=== PATIENT | male | born 1960 | race Caucasian/White ===

== ENCOUNTER → 2017-02-06 | Outpatient (CLI) | payer OTHER ==
[~2017-02-06] MED LIST: MIRALAX POWDER17 G1 PO; XARELTO15 M1 PO
[2017-02-06 14:42] LABS: BASO # 0.1 10*3/uL (0.0-0.1); BASO % 0.6 % (0.0-1.0); EOS # 0.4 10*3/uL (0.0-0.4); EOS % 4.1 % (1.0-4.0); LYMPH # 1.1 10*3/uL (1.3-4.4); LYMPH % 10.8 % (27.0-41.0); MEAN CELL VOLUME 88.1 fl (80.0-94.0); MEAN CORPUSCULAR HGB 29.4 pg (27.0-31.0); MEAN CORPUSCULAR HGB CONC 33.3 g/dl (33.0-37.0); MEAN PLATELET VOLUME 9.2 fl (9.6-12.3); MONO # 0.9 10*3/uL (0.1-1.0); MONO % 8.9 % (3.0-9.0); NEUT # 7.4 10*3/uL (2.3-7.9); NEUT % 75.3 % (47.0-73.0); PLATELET COUNT AUTOMATED 249 10*3/uL (130-400); RED BLOOD COUNT 4.77 10*6/uL (4.50-5.90); WHITE BLOOD COUNT 9.8 10*3/uL (4.8-10.8)
[2017-02-06 15:12] LABS: ALBUMIN 3.2 gm/dl (3.1-4.5); ALKALINE PHOSPHATASE 73 U/L (45-117); BILIRUBIN, TOTAL 0.2 mg/dl (0.2-1.0); BUN 20 mg/dl (7-24); CARBON DIOXIDE 28 mmol/L (21-32); CHLORIDE 105 mmol/L (98-107); EST GLOM FILT AFRICAN AMERICAN > 60 ml/min; GLUCOSE 187 mg/dL (65-99); LDH 210 U/L (87-241); POTASSIUM 4.1 mmol/L (3.5-5.1); SGOT/AST 18 IU/L (3-35); SGPT/ALT 27 U/L (12-78); SODIUM 141 mmol/L (136-145); TOTAL PROTEIN 8.7 gm/dL (6.4-8.2)
== END | disposition home or self-care (01) ==
LOC: LAB 14:28
PROVIDERS: Internal Medicine Hematology & Oncology
DX: Z51.11 Encounter for antineoplastic chemotherapy (principal); C15.3 Malignant neoplasm of upper third of esophagus; C15.5 Malignant neoplasm of lower third of esophagus; I82.409 Acute embolism and thrombosis of unspecified deep veins of unspecified lower extremity; I31.3 Pericardial effusion (noninflammatory); R11.2 Nausea with vomiting, unspecified

== ENCOUNTER → 2017-06-27 | Outpatient (CLI) | payer OTHER ==
[2017-06-27 14:13] LABS: BASO # 0.1 10*3/uL (0.0-0.1); BASO % 0.7 % (0.0-1.0); EOS # 0.4 10*3/uL (0.0-0.4); EOS % 4.6 % (1.0-4.0); HEMATOCRIT 41.9 % (42.0-52.0); LYMPH # 1.3 10*3/uL (1.3-4.4); LYMPH % 13.3 % (27.0-41.0); MEAN CELL VOLUME 87.3 fl (80.0-94.0); MEAN CORPUSCULAR HGB 29.2 pg (27.0-31.0); MEAN CORPUSCULAR HGB CONC 33.4 g/dl (33.0-37.0); MONO # 0.8 10*3/uL (0.1-1.0); MONO % 8.3 % (3.0-9.0); NEUT # 6.8 10*3/uL (2.3-7.9); NEUT % 72.4 % (47.0-73.0); PLATELET COUNT AUTOMATED 247 10*3/uL (130-400); RED CELL DISTRI WIDTH 13.1 % (0-14.5); WHITE BLOOD COUNT 9.4 10*3/uL (4.8-10.8)
[2017-06-27 14:34] LABS: ALBUMIN 3.2 gm/dl (3.1-4.5); ALKALINE PHOSPHATASE 74 U/L (45-117); BUN 16 mg/dl (7-24); CHLORIDE 104 mmol/L (98-107); CREATININE 1.21 mg/dL (0.70-1.30); LDH 173 U/L (87-241); POTASSIUM 4.1 mmol/L (3.5-5.1); SGOT/AST 19 IU/L (3-35); SGPT/ALT 38 U/L (12-78); SODIUM 137 mmol/L (136-145); TOTAL PROTEIN 8.5 gm/dL (6.4-8.2)
== END | disposition home or self-care (01) ==
LOC: LAB 13:33
PROVIDERS: Internal Medicine Hematology & Oncology
DX: Z51.11 Encounter for antineoplastic chemotherapy (principal); I31.3 Pericardial effusion (noninflammatory); I50.9 Heart failure, unspecified; I82.409 Acute embolism and thrombosis of unspecified deep veins of unspecified lower extremity; C15.5 Malignant neoplasm of lower third of esophagus; C15.3 Malignant neoplasm of upper third of esophagus; R11.2 Nausea with vomiting, unspecified

== ENCOUNTER → 2018-01-02 | Outpatient (CLI) | payer OTHER ==
[2018-01-02 09:16] LABS: BASO # 0.1 10*3/uL (0.0-0.1); BASO % 0.7 % (0.0-1.0); EOS # 0.3 10*3/uL (0.0-0.4); EOS % 3.1 % (1.0-4.0); HEMATOCRIT 44.2 % (42.0-52.0); LYMPH # 1.1 10*3/uL (1.3-4.4); LYMPH % 12.5 % (27.0-41.0); MEAN CELL VOLUME 87.7 fl (80.0-94.0); MEAN CORPUSCULAR HGB 29.8 pg (27.0-31.0); MEAN CORPUSCULAR HGB CONC 33.9 g/dl (33.0-37.0); MEAN PLATELET VOLUME 9.9 fl (9.6-12.3); MONO # 0.8 10*3/uL (0.1-1.0); NEUT # 6.7 10*3/uL (2.3-7.9); NEUT % 74.3 % (47.0-73.0); PLATELET COUNT AUTOMATED 234 10*3/uL (130-400); RED BLOOD COUNT 5.04 10*6/uL (4.50-5.90); RED CELL DISTRI WIDTH 12.8 % (0-14.5)
[2018-01-02 09:40] LABS: ALBUMIN 3.3 gm/dl (3.1-4.5); ALKALINE PHOSPHATASE 75 U/L (45-117); BUN 24 mg/dl (7-24); CHLORIDE 103 mmol/L (98-107); CREATININE 1.21 mg/dL (0.70-1.30); LDH 205 U/L (87-241); SGOT/AST 28 IU/L (3-35); SGPT/ALT 60 U/L (12-78); SODIUM 138 mmol/L (136-145); TOTAL PROTEIN 8.9 gm/dL (6.4-8.2)
== END | disposition home or self-care (01) ==
LOC: LAB 08:34
PROVIDERS: Internal Medicine Hematology & Oncology
DX: Z51.11 Encounter for antineoplastic chemotherapy (principal); I82.409 Acute embolism and thrombosis of unspecified deep veins of unspecified lower extremity; I31.3 Pericardial effusion (noninflammatory); C15.5 Malignant neoplasm of lower third of esophagus; C15.3 Malignant neoplasm of upper third of esophagus; R11.2 Nausea with vomiting, unspecified

== ENCOUNTER 2019-12-06 17:00 | Emergency (ER) | payer OTHER ==
[~2019-12-06] VITALS: Ht 185.4 cm; Wt 108.9 kg
== END 2019-12-06 21:29 | disposition short-term general hospital (02) ==
LOC: ED 17:00
DX: G93.89 Other specified disorders of brain (principal); E11.9 Type 2 diabetes mellitus without complications; Z79.899 Other long term (current) drug therapy; Z87.891 Personal history of nicotine dependence

== ENCOUNTER 2020-07-13 09:25 | Inpatient (IN) | payer OTHER ==
[~2020-07-13] VITALS: Ht 170.2 cm; Wt 57.6 kg
[2020-07-13 09:26] VITALS: BP 151/89
[2020-07-13 12:29] VITALS: BP 159/75
[2020-07-13 12:31] LABS: BASO % 0.6 % (0.0-1.0); EOS # 0.1 10*3/uL (0.0-0.4); EOS % 0.8 % (1.0-4.0); HEMATOCRIT 38.4 % (42.0-52.0); LYMPH # 0.6 10*3/uL (1.3-4.4); LYMPH % 8.6 % (27.0-41.0); MEAN CELL VOLUME 81.5 fl (80.0-94.0); MEAN CORPUSCULAR HGB 25.7 pg (27.0-31.0); MEAN CORPUSCULAR HGB CONC 31.5 g/dl (33.0-37.0); MEAN PLATELET VOLUME 8.7 fl (9.6-12.3); MONO # 0.7 10*3/uL (0.1-1.0); MONO % 10.6 % (3.0-9.0); NEUT # 5.2 10*3/uL (2.3-7.9); NEUT % 79.1 % (47.0-73.0); PLATELET COUNT AUTOMATED 165 10*3/uL (130-400); RED BLOOD COUNT 4.71 10*6/uL (4.50-5.90); RED CELL DISTRI WIDTH 21.2 % (0-14.5); WHITE BLOOD COUNT 6.5 10*3/uL (4.8-10.8)
[2020-07-13 12:39] LABS: INTERNATIONAL NORM RATIO 1.2 (2.0-3.5)
[2020-07-13 12:50] LABS: ALBUMIN 2.6 gm/dl (3.1-4.5); BUN 21 mg/dl (7-24); CHLORIDE 107 mmol/L (98-107); CREATININE 0.66 mg/dL (0.70-1.30); POTASSIUM 3.1 mmol/L (3.5-5.1); SGOT/AST 112 IU/L (3-35); SGPT/ALT 207 U/L (12-78); SODIUM 139 mmol/L (136-145); TOTAL PROTEIN 7.6 gm/dL (6.4-8.2)
[2020-07-13 12:51] LABS: ALKALINE PHOSPHATASE 493 U/L (45-117)
--- NOTE | 2020-07-13 13:55 | NUR ---
PT HAD TAKEN SOME PAIN MEDICATION PRIOR TO ARRIVAL AND UNTIL THIS TIME HAD DENIES HAVING PAIN. UPON BEING TAKEN OFF THE FLOOR TO XRAY FOR MULTIPLE NEW XRAY'S, PT'S PAIN RETURNED. HE REFUSED THESE XRAY UNTIL MEDICATED. IV SITE NOW INSERTED AND FENTANYL DOSE ADMINISTERED. POX MONITORING IN PLACE.
[2020-07-13 13:56] VITALS: BP 156/70
--- NOTE | 2020-07-13 16:07 | NUR ---
PATIENT IS STABLE AND READY FOR TRANSPORT TO INPATIENT ROOM.
--- NOTE | 2020-07-13 16:39 | NUR ---
PRIOR TO TRANSPORTING PATIENT UPSTAIRS, HE REQUESTED A PRIVATE ROOM DUE TO BEING IMMUNOCOMPROMISED. SEVERAL CALLS MADE TO THE 4TH FLOOR AND CORROSION ENGINEER. PATIENT WILL STILL BE GOING TO ROOM #412 BUT IT WILL BLOCKED OFF AND MADE A PRIVATE ROOM.
[2020-07-13 17:00] VITALS: BP 178/90
--- NOTE | 2020-07-13 17:00 | NUR ---
CALLED DR. LOWERY TO GET A DIET FOR THIS EVENING.
[2020-07-13] MEDS ORDERED: JARDIANCE10 MG PO (17:10)
[2020-07-13] MEDS ORDERED: PERCOCET 5-3251 EACH PO (17:10)
[2020-07-13] MEDS ORDERED: GLUCOPHAGE500 M1 PO (17:11)
[2020-07-13] MEDS ORDERED: METOPROLOL TART50 M1 PO (17:11)
[2020-07-13] MEDS ORDERED: LISINOPRIL5 MG PO (17:11)
[2020-07-13] MEDS ORDERED: METHOTREXATE2.5 MG PO (17:15)
[2020-07-13] MEDS ORDERED: KEPPRA500 MG PO (17:19)
--- NOTE | 2020-07-13 17:20 | NUR ---
CALLED DR. LOWERY MADE AWARE PT MEDICATION WAS VERIFIED AND NEEDS ORDERED.
--- NOTE | 2020-07-13 18:07 | NUR ---
PT C/O RIGHT LEG/HIP PAIN, RATES PAIN 8 ON PAIN SCALE 0-10. MEDICATED WITH PERCOCET PO PER PRN ORDER, SEE EMAR. CALL LIGHT IN REACH. BED ALARM ON.
--- NOTE | 2020-07-13 19:27 | NUR ---
pt medicated with prn percocet for c/o left hip pain rated as a 10/10. will conitnue to monitor.
--- NOTE | 2020-07-13 19:30 | NUR ---
DILAUDID GIVEN FOR COMPLAINTS OF PAIN R/T FRACTURED HIP 04/01 WITHOUT ANY MOVEMENT. RN WILL CONTINUE TO MONITOR
--- NOTE | 2020-07-13 20:19 | NUR ---
PATIENT TRANSFERRED TO ROOM 409 WITH ALL BELONGINGS. TOLERATED TRANSFER WELL. PATIENT REPORTS PAIN MEDICATION HAS HELPED EASE HIS PAIN. REPORT GIVEN TO ELIZABETH PEREZ
--- NOTE | 2020-07-13 21:54 | NUR ---
PT MEDICATED WITH PRN PERCOCET FOR C/O LEFT HIP PAIN. WILL CONTINUE TO MONITOR.
--- NOTE | 2020-07-13 22:30 | NUR ---
PT ASLEEP IN BED AT THIS TIME. NO S/S OF DISTRESS. PRN PERCOCET EFFECTIVE.
[2020-07-14] VITALS (10 sets, daily range): BP systolic 102–160; BP diastolic 67–98
[2020-07-14 06:41] LABS: BASO # 0.1 10*3/uL (0.0-0.1); BASO % 1.1 % (0.0-1.0); EOS # 0.1 10*3/uL (0.0-0.4); EOS % 1.3 % (1.0-4.0); HEMATOCRIT 34.2 % (42.0-52.0); LYMPH # 0.6 10*3/uL (1.3-4.4); MEAN CORPUSCULAR HGB 25.7 pg (27.0-31.0); MEAN CORPUSCULAR HGB CONC 31.3 g/dl (33.0-37.0); MEAN PLATELET VOLUME 9.3 fl (9.6-12.3); MONO # 0.6 10*3/uL (0.1-1.0); MONO % 13.1 % (3.0-9.0); NEUT # 3.2 10*3/uL (2.3-7.9); NEUT % 70.1 % (47.0-73.0); PLATELET COUNT AUTOMATED 171 10*3/uL (130-400); RED BLOOD COUNT 4.17 10*6/uL (4.50-5.90); RED CELL DISTRI WIDTH 21.2 % (0-14.5); WHITE BLOOD COUNT 4.5 10*3/uL (4.8-10.8)
[2020-07-14 07:15] LABS: ALBUMIN 2.3 gm/dl (3.1-4.5); ALKALINE PHOSPHATASE 395 U/L (45-117); BUN 24 mg/dl (7-24); CHLORIDE 108 mmol/L (98-107); CHOLESTEROL 113 mg/dL (<200); CREATININE 0.65 mg/dL (0.70-1.30); FREE T4 0.98 ng/dl (0.76-1.46); HDL CHOLESTEROL 23 mg/dl (40-60); LDL CHOLESTEROL 73 mg/dL (9-159); POTASSIUM 3.8 mmol/L (3.5-5.1); SGOT/AST 48 IU/L (3-35); SGPT/ALT 130 U/L (12-78); SODIUM 140 mmol/L (136-145); TOTAL PROTEIN 6.8 gm/dL (6.4-8.2); TRIGLYCERIDES 83 mg/dl (<150); VLDL CHOLESTEROL 17 mg/dL (6-40)
[2020-07-14 07:19] LABS: THYROID STIM HORMONE (HS) 0.774 uIU/ml (0.358-4.75)
[2020-07-14 07:36] LABS: VITAMIN D, 25-HYDROXY 21.6 ng/mL (30-100)
--- NOTE | 2020-07-14 08:30 | NUR ---
CM in to see patient. He is currently not in his room. He is in surgery. Will follow up at a later time.
--- NOTE | 2020-07-14 08:44 | NUR ---
PHYSICAL THERAPY PT eval order received 07/13 pt admitted with R hip fx and has Orthopedic consult. Pt is NPO for possible surgery today, will follow await orders after surgical procedure. Quynh Yun PT
--- NOTE | 2020-07-14 08:45 | NUR ---
OT NOTE Occupational therapy order received and chart reviewed. Per chart review, patient is scheduled for surgery for 07/14/2020 due to a R displaced intertrochanteric fx. Will hold until post-op and further clarification of weight bearing status and activity limitations by orthopedic MD. Thank you. Nargis Steen, OTR/L
--- NOTE | 2020-07-14 08:50 | NUR ---
PATIENT TAKEN OFF FLOOR FOR SURGERY.
--- NOTE | 2020-07-14 12:16 | NUR ---
CM in to see patient. He is not in his room at this time. He is in surgery. Will follow up at a later time.
--- NOTE | 2020-07-14 13:30 | NUR ---
OT NOTE Occupational therapy order received and chart reviewed. Patient is s/p a intramedullary fixation of R intertrochanteric hip fx. Per post-op report and the new order received by Dr. Bernal, patient is RLE WBAT. Attempted to see patient this afternoon at 1330; however, patient was still in surgery. Will check back in AM for completion of an OT evaluation. Nargis Steen, OTR/L
--- NOTE | 2020-07-14 14:30 | NUR ---
PATIENT BACK ON FLOOR FROM SURGERY.
--- NOTE | 2020-07-14 14:41 | NUR ---
Received order for Palliative care to follow here at hospital and after discharge. Faxed order and clinicals to [facility].
--- NOTE | 2020-07-14 15:06 | NUR ---
PHYSICAL THERAPY Physical Therapy order received and chart reviewed. Patient is s/p a intramedullary fixation of R intertrochanteric hip fx. Per post-op report patient is RLE WBAT. Attempted to see patient this afternoon at 1330 patient was still in surgery. Will follow in the AM for evaluation. Quynh Yun PT
--- NOTE | 2020-07-14 16:54 | NUR ---
PATIENT MEDICATED WITH IV DILAUDID FOR C/O 8/10 PAIN IN R HIP POST-OP. WILL MONITOR FOR EFFECTIVENESS.
--- NOTE | 2020-07-14 17:54 | NUR ---
PT APPEARS RELAXED, MEDICATION APPEARS TO HAVE BEEN EFFECTIVE.
--- NOTE | 2020-07-14 18:25 | NUR ---
PRN PERCOCET GIVEN FOR COMPLAINTS OF PAIN RATED 8/10. WILL MONITOR FOR EFFECTIVENESS
--- NOTE | 2020-07-14 19:20 | NUR ---
PERCOCET EFFECTIVE FOR PAIN PER PT.
--- NOTE | 2020-07-14 21:00 | NUR ---
DRESSING WAS PEELED OFF UPPER THIGH AREA. DRESSING REINFORCED AND EDUCATED PATIENT ON NOT TOUCHING DRESSING. PATIENT VOIDED 400CC DARK SHEILA URINE.
--- NOTE | 2020-07-14 22:24 | NUR ---
DILAUDID GIVEN PER ORDER FOR PAIN IN RIGHT HIP AREA RATED "8" SEE MAR.
--- NOTE | 2020-07-14 23:20 | NUR ---
DILAUDID EFFECTIVE FOR PAIN PER PT.
[2020-07-15] VITALS: BP 157/73
--- NOTE | 2020-07-15 02:51 | NUR ---
PATIENT AWAKE AND PICKING AT DRESSING TAPE. DRESSING REINFORCED NO DRAINAGE NOTED FROM SITE. PATIENT EDUCATED ON NOT TOUCHING INCISION AREA FOR FEAR OF INTRODUCING BACTERIA INTO SITE. PATIENT VOICED UNDERSTANDING BUT ALSO CONTINUED TO PLAY WITH DRESSING. PATIENT VOIDED 225CC DARK SHEILA URINE.
--- NOTE | 2020-07-15 03:37 | NUR ---
24 HR chart check completed.
--- NOTE | 2020-07-15 03:44 | NUR ---
DILAUDID GIVEN PER ORDER FOR PAIN IN RIGHT LEG RATED "7" SEE DEC. ICE PACK TO RIGHT LEG INCISION AREA.
--- NOTE | 2020-07-15 04:40 | NUR ---
DILAUDID EFFECTIVE FOR PAIN PATIENT RESTING WELL.
--- NOTE | 2020-07-15 05:50 | NUR ---
C/O PAIN RIGHT LEG/HIP PAIN DID NOT WANT DILAUDID WANTED PERCOCET. PERCOCET GIVEN FOR PAIN RATED"5" SEE MAR.
--- NOTE | 2020-07-15 06:50 | NUR ---
PERCOCET EFFECTIVE FOR PAIN IN RIGHT LEG PER PT.
[2020-07-15 06:59] LABS: BASO % 0.6 % (0.0-1.0); EOS # 0.1 10*3/uL (0.0-0.4); EOS % 1.5 % (1.0-4.0); HEMATOCRIT 28.7 % (42.0-52.0); LYMPH # 0.9 10*3/uL (1.3-4.4); LYMPH % 16.8 % (27.0-41.0); MEAN CELL VOLUME 82.5 fl (80.0-94.0); MEAN CORPUSCULAR HGB 26.7 pg (27.0-31.0); MEAN CORPUSCULAR HGB CONC 32.4 g/dl (33.0-37.0); MEAN PLATELET VOLUME 9.2 fl (9.6-12.3); MONO # 0.9 10*3/uL (0.1-1.0); MONO % 17.6 % (3.0-9.0); NEUT # 3.3 10*3/uL (2.3-7.9); NEUT % 63.1 % (47.0-73.0); PLATELET COUNT AUTOMATED 129 10*3/uL (130-400); RED BLOOD COUNT 3.48 10*6/uL (4.50-5.90); RED CELL DISTRI WIDTH 21.1 % (0-14.5); WHITE BLOOD COUNT 5.2 10*3/uL (4.8-10.8)
[2020-07-15 07:25] LABS: BUN 22 mg/dl (7-24); CHLORIDE 105 mmol/L (98-107); CREATININE 0.59 mg/dL (0.70-1.30); POTASSIUM 3.4 mmol/L (3.5-5.1); SODIUM 137 mmol/L (136-145)
--- NOTE | 2020-07-15 07:47 | NUR ---
[facility] will be in today to assess and discuss care with patient.
[2020-07-15 08:00] VITALS: BP 139/85
--- NOTE | 2020-07-15 08:00 | NUR ---
PATIENT RESTING IN BED. WHEN ASKED IF PATIENT NEEDED ANYTHING FOR PAIN HE STATED HE WOULD ASK "THEM WHEN HE GOT OUT OF BED." INSTRUCTED PATIENT HE CAN HAVE PAIN SHOT IF NEEDED.
--- NOTE | 2020-07-15 08:33 | NUR ---
Steph Simental CNP from [facility] will see patient this afternoon.
--- NOTE | 2020-07-15 09:00 | NUR ---
Box Blank Machine Operator Helper in to talk to patient. Patient states lives at home alone with his sister checking in on him. There are 0 steps in the home. Physician: Dr. Delgado aGrcia Pharmacy: [facility] Home health services: none Patient's level of ADLs: MINIMAL ASSIST Patient has working utilities: yes DME: cane Follow-up physician's appointment after d/c: will be made by the hospitalist nurse director upon discharge Does patient want to access PORTAL?: no Discharge plan discussed with patient. He lives at home alone with his sister checking in on him. He states he is normally independent in his ADLS and ambulation but does have a cane if needed. Discussed short term rehab and he is hesitantly agreeable. When provided with a list of facilities he [facility] and 2. [facility] but would like CM to reach out to his sister for her thoughts. When medically stable he will be discharged to a short term rehab. western tack assembly line worker notified. ISSAC AJ
--- NOTE | 2020-07-15 09:30 | NUR ---
Occupational Therapy evaluation completed on 4NE with full evaluation to follow. Recommend occupational therapy per plan of care and SNF upon discharge. Thank you for this referral. Nargis Steen OTR/L
--- NOTE | 2020-07-15 09:30 | NUR ---
PHYSICAL THERAPY Physical Therapy evaluation completed on 4NE with full evaluation to follow. Recommend physical therapy per plan of care and SNF upon discharge. Thank you for this referral. Quynh Yun PT
--- NOTE | 2020-07-15 09:45 | NUR ---
Spoke to sister, Kristyn, regarding discharge planning at patient's request. Discussed short term rehab and she is agreeable. Informed patient is also agreeable to rehab but wanted CM to reach out to her to see what she thought. When provided with a list of facilities she chose [facility]. Discussed the possibility of [facility] in [place] also. She would rather [facility] because it is closer. She states she has tried to get a hold of her brother this morning on his cell phone but he didn't answer. Informed CM will check to see that patient has his cell phone and let him know his sister is trying to get a hold of him. space planner/social services designee notified.
--- NOTE | 2020-07-15 09:49 | NUR ---
Therapy in room working with patient. Informed patient his sister was trying to get a old of him when he has a moment to reach back out to her. Therapy located his cell phone is in bedside cabinet and handed to patient.
--- NOTE | 2020-07-15 10:00 | NUR ---
ANESTHESIOLOGY IN ROOM CHECKING ON PATIENT. PATIENT SAID HE IS IN ALOT OF PAIN WHEN INSTRUCTED HE DID'NT WANT EARLIER HE WAS SHOKED AND SAID HE NEVER SAID THAT. WILL MEDICATE.
--- NOTE | 2020-07-15 10:15 | NUR ---
MEDICATED WITH PRN DILAUDID PER ORDER AND REQUEST FOR R LEG PAIN RATED AT A 7 OUT OF 10.
[2020-07-15 12:00] VITALS: BP 128/75
--- NOTE | 2020-07-15 14:00 | NUR ---
OT NOTE Upon arrival pt was sitting in recliner agreeable to 25 minute OT session. Identified by name and date of with complaints of 8/10 right hip pain and 7/10 B shoulder pain. Pt educated on adaptive equipment for donning socks. MaxA doff B hospital socks due to fatigue. ModA to jose B hospital socks with use of sock aide due to fatigue. Sit-stand from recliner ModA x2 with w/w for UB support and safety. Pt tolerated 3 minutes of standing before sitting at maxA x1 due to LOB and retrograde posture. Second sit-stand Landon x2 with w/w. Functional mobility from recliner to doorway Landon with w/w for safety and support. Pt wheeled back to bed. Transfer EOB to supine maxA due to fatigue. call light in reach and bed alarm active. Continue d/c recommended SNF. RAMONE Tello/TERI Olivier/Linda
--- NOTE | 2020-07-15 15:09 | NUR ---
PHYSICAL THERAPY TREATMENT TIME: IN 1:37 PM - OUT 2:00 PM 23 MINUTES TOTAL PRESENTATION: Patient was sitting in bedside chair COMPLAINTS: 05/01 in [place] Shoulders 8 R HIP WT BEARING STATUS: Pain in bilateral shoulders that precludes therapist from assisting lifting patient through the shoulders. WBAT in the R HIP ASSISTIVE DEVICE: Wh Walker TRANSFERS: STS from bedside chair : MAX A X 2 1ST attempt MIN A X 2 2nd attempt Sit EOB to supine in bed : MAX A X 2 TREATMENT: Standing tolerance at Walker : CGA X 2 for 3 min 15 sec GAIT with Walker with CGA and Rolling Chair follow for 30 ' x 1. RESPONSE TO TREATMENT: Patient had no LOB while performing gait Patient did have increased pain in the shoulders with gait Patient's R hip seemed to tolerate the gait and WBAT WELL with no increased pain. CONCLUSION: Patient left in supine in bed Call light within reach TERI Youssef and her student Nargis were present as witness to this treatment. Bed alarm activated Head of bed elevated BHARAT COOPER PTA Bed brake locked
--- NOTE | 2020-07-15 15:58 | NUR ---
MEDICATED IW PRN PERCOCET PER ORDER AND REQUEST.
[2020-07-15 16:00] VITALS: BP 107/71
[2020-07-15 20:00] VITALS: BP 133/71
--- NOTE | 2020-07-15 21:44 | NUR ---
C/O PAIN RIGHT HIP POST SURGERY RATED "7" PATIENT DID NOT WANT DILAUDID SAID THE PILL WORKS BETTER. PERCOCET GIVEN PER ORDER FOR PAIN. SEE MAR.
--- NOTE | 2020-07-15 22:40 | NUR ---
PERCOCET EFFECTIVE FOR PAIN PER PT.
[2020-07-16] VITALS: BP 140/77
--- NOTE | 2020-07-16 00:46 | NUR ---
DILAUDID GIVEN PER ORDER FOR PAIN PATIENT WAS RESTLESS AND WANTED SOMETHING FOR PAIN TOO SOON FOR PERCOCET. PAIN RATED "8" SEE MAR.
--- NOTE | 2020-07-16 01:45 | NUR ---
DILAUDID EFFECTIVE FOR PAIN PATIENT SLEEPING.
--- NOTE | 2020-07-16 03:10 | NUR ---
Hep Lock discontinued from right hand due to leaking at site. Site symptomatic. Pressure applied. Sterile dressing applied. CITLALLI PENG
--- NOTE | 2020-07-16 03:11 | NUR ---
AWAKE PERCOCET GIVEN PER ORDER FOR PAIN RIGHT HIP/THIGH AREA RATED "7" SEE MAR. PATIENT SAT UP AT SIDE OF BED AND VOIDED 250CC SHEILA COLORED URINE. PATIENT SAT UP FOR 10 MINUTES AND THEN BACK IN BED AND RETURNING TO SLEEP.
--- NOTE | 2020-07-16 04:04 | NUR ---
24 HR chart check completed.
--- NOTE | 2020-07-16 04:10 | NUR ---
SLEEPING PERCOCET EFFECTIVE FOR PAIN.
--- NOTE | 2020-07-16 05:00 | NUR ---
PATIENT AWAKE WANTED SCD'S OFF SAID "TAKE THESE THINGS OFF I CAN'T STAND THEM ANYMORE." SCD'S OFF PER PT. REQUEST
[2020-07-16 07:05] LABS: BASO % 0.9 % (0.0-1.0); EOS # 0.1 10*3/uL (0.0-0.4); EOS % 2.6 % (1.0-4.0); LYMPH # 0.6 10*3/uL (1.3-4.4); LYMPH % 15.1 % (27.0-41.0); MEAN CORPUSCULAR HGB 26.5 pg (27.0-31.0); MEAN CORPUSCULAR HGB CONC 32.3 g/dl (33.0-37.0); MEAN PLATELET VOLUME 9.5 fl (9.6-12.3); MONO # 0.7 10*3/uL (0.1-1.0); MONO % 16.8 % (3.0-9.0); NEUT # 2.7 10*3/uL (2.3-7.9); NEUT % 64.4 % (47.0-73.0); PLATELET COUNT AUTOMATED 148 10*3/uL (130-400); RED BLOOD COUNT 3.66 10*6/uL (4.50-5.90); RED CELL DISTRI WIDTH 20.9 % (0-14.5); WHITE BLOOD COUNT 4.2 10*3/uL (4.8-10.8)
[2020-07-16 08:00] VITALS: BP 148/80
--- NOTE | 2020-07-16 08:00 | NUR ---
DR. DONG HAS ROUNDED.
--- NOTE | 2020-07-16 08:23 | NUR ---
Referral faxed to [facility] on 07/15/2020. Still waiting for review/acceptance.
--- NOTE | 2020-07-16 09:00 | NUR ---
CM in to see patient. No new needs or request at this time. When medically stable, accepted, COVID results, and precert he can be discharged to [facility]. rescue worker/menu planner following.
--- NOTE | 2020-07-16 09:10 | NUR ---
OT NOTE Upon arrival pt was laying supine in bed agreeable to 25 minute OT session. Identified by name and date of with no complaints. Transfer supine to EOB Landon. Sit-stand from EOB CGA with w/w for UB support and safety. Functional mobility from EOB to bathroom CGA with w/w. Transferring on commode Landon for low commode, coming off commode CGA with grab bar and w/w. hygiene SBA. Pt stood sink side unsupported to wash hands and face at Landon due to shakiness/LOB. Functional mobility from bathroom to recliner CGA with w/w. Throughout mobility pt required multiple verbal prompts for safety and walker navigation. Pt left in recliner to eat breakfast. call light in reach and alarm active. Continue d/c recommended SNF. RAMONE Tello/TERI Olivier/Linda
--- NOTE | 2020-07-16 09:24 | NUR ---
THERAPY HAS COME AND PATIENT IS NOW UP IN CHAIR.
--- NOTE | 2020-07-16 09:25 | NUR ---
MEDICATED WITH PRN PERCOCET PER ORDER AND REQUEST.
--- NOTE | 2020-07-16 09:46 | NUR ---
PHYSICAL THERAPY TREATMENT TIME: 08:45 AM - OUT 09:05 AM 20 MINUTES TOTAL PRESENTATION: Patient was in supine in bed Head of bed elevated No IVs No spo2 COMPLAINTS: Patient complains of fatigue and R hip pain WT. BEARING STATUS: WBAT on the R LE ASSISTIVE DEVICE: Wh Walker TRANSFERS: Supine to sitting on EOB: MIN A X 2 STS from EOB: CGA Verbal cues for hand placement STS from commode: CGA Verbal cues for pushing off the wall handrail on L to stand Stand to sit in bedside chair : CGA Verbal cues for putting hands back on armrests to slow descent. TREATMENT: Patient ambulated with Wh Walker and CGA for 28' x 1 One minor LOB the patient corrected himself. Another gait of 15' x 1 to bedside chair with CGA. RESPONSE TO TREATMENT: Patient tolerated treament, including gait and transfers, with Moderate pain in the R hip and R LE. Patient did begin ot shake at the end of the first 28' x 1 distance and knees wanted to buckle. Verbal cues were required to keep LEs locked in extension to prevent knee buckle. CONCLUSION: Patient left in bedside chair Chair alarm tested and attached to patient Tray table left in front of patient. LEs in low position BHARAT COOPER HEAD FILTER PRESS TENDER
--- NOTE | 2020-07-16 10:10 | NUR ---
PERCOCET IS HELPING.
[2020-07-16 12:00] VITALS: BP 155/75
--- NOTE | 2020-07-16 12:45 | NUR ---
OT NOTE Upon arrival pt was sitting in recliner agreeable to 15 minute OT session. Identified by name and date of with no complaints to date. Sit-stand from recliner CGA with w/w for UB support and safety. Stand pivot from recliner to EOB Landon with w/w due to LOB. Pt able to use compensatory method of "hooking" with his LLE to lift legs into bed at Landon. call light in reach and bed alarm active. Continue d/c recommended SNF. RAMONE Tello/TERI Olivier/Linda
--- NOTE | 2020-07-16 13:01 | NUR ---
MEDICATED WITH PRN DILAUDID PER ORDER AND REQUEST.
--- NOTE | 2020-07-16 13:09 | NUR ---
PHYSICAL THERAPY TREATMENT TIME: 11:50 AM 10 MINUTES Patient STS out of bedside chair and SPT to sitting on EOB with CGA and Verbal Cues for proper transfer technique. Patient transferred from sitting on EOB to supine with MIN A X 1-CGA. Patient was left in supine in bed with head of bed elevated and call light within reach. Bed alarm activated. Patient was 1:1 with this STORE HOST for 10 minutes total. BHARAT COOPER STORE HOST
--- NOTE | 2020-07-16 14:21 | NUR ---
[facility] stating they are unable to accept this patient, they are unable to meet his needs. Will discuss with family other facilities in network with insurance.
--- NOTE | 2020-07-16 14:28 | NUR ---
Demographics faxed to [facility] to check for benefits.
[2020-07-16 16:00] VITALS: BP 116/68
--- NOTE | 2020-07-16 16:14 | NUR ---
MEDICATED WITH PRN PERCOCET PER ORDER AND REQUEST.
--- NOTE | 2020-07-16 19:28 | NUR ---
24 HR chart check completed.
[2020-07-16 20:00] VITALS: BP 135/78
--- NOTE | 2020-07-16 22:15 | NUR ---
PERCOCET GIVEN FOR C/O PAIN RIGHT HIP/THIGH RATED "6" SEE MAR.
--- NOTE | 2020-07-16 23:15 | NUR ---
PERCOCET EFFECTIVE FOR PAIN PER PT.
[2020-07-17] VITALS: BP 130/83
--- NOTE | 2020-07-17 02:00 | NUR ---
SLEEPING NOT ACUTE DISTRESS NOTED. PATIENT LAYING LEFT SIDE
--- NOTE | 2020-07-17 04:00 | NUR ---
SLEEPING NO ACUTE DISTRESS NOTED. RESP. EASY AND REG. PATIENT LAYING ON BACK.
--- NOTE | 2020-07-17 05:29 | NUR ---
C/O PAIN RIGHT HIP/THIGH RATED "6" PERCOCET GIVEN PER ORDER FOR PAIN SEE MAR.
--- NOTE | 2020-07-17 05:45 | NUR ---
PATIENT CALLED RN TO ROOM PATIENT HAD VOIDED AND GOT HIMSELF SOILED. PARTIAL BATH GIVEN PER PT. REQUEST. DRESSING TO RIGHT HIP AND LOWER THIGH HAD FALLEN OFF. 3 AREAS OF INCISION AND MO EXPOSED. NO ORDER FOR DRESSING. CALLED DR. ALVAREZ AND DRESSING ORDERS OBTAINED. ALL INCISION AREAS AND WELL APPROX. FLESH COLORED NO DRAINAGE WITH INTACT MO. UPPER INCISIONS ON HIP HAVE 4 STAPLE EACH AND LOWER OUTER THIGH HAS 2 MO. ALL AREAS CLEANSED WITH NORMAL SALINE, COVERED WITH SMALL 2X2 GAUZE AND COVERED WITH OPTIFOAM AND LABELLED CHANGED TODAY. SPOKE WITH LEILA FROM [facility] AND NO PICTURES TAKEN AT THIS TIME.
--- NOTE | 2020-07-17 06:25 | NUR ---
PERCOCET EFFECTIVE FOR PAIN PER PT.
[2020-07-17 08:00] VITALS: BP 143/71
--- NOTE | 2020-07-17 08:32 | NUR ---
Jerrica from [facility] stating patients insurance is in network for [facility]. Emailed full referral for review. Waiting on review/acceptance. will require precert.
--- NOTE | 2020-07-17 09:41 | NUR ---
PT C/O OF GENERALIZED PAIN RATING 6/10 RIGHT SHOULDER RIGHT HIP PRN PERCOCET GIVEN PER ORDER
--- NOTE | 2020-07-17 10:05 | NUR ---
PER PT PERCOCET WAS EFFECTIVE
--- NOTE | 2020-07-17 10:54 | NUR ---
OT NOTE Upon arrival pt was laying supine in bed agreeable to 25 minute OT session. Identified by name and date of with complaints of 7/10 left shoulder pain and 2/10 right hip pain. Transfer supine to EOB Landon with HH. Sit-stand CGA with w/w for UB support and saftey. Functional mobility from EOB to bathroom CGA with w/w. Transferring on and off commode CGA with w/w and grab bar. clothing management and hygiene CGA. Pt stood sink side to wash hands unsupported. Standing balance F+. Functional mobility from bathroom to hallway CGA with w/w. Hallway to recliner CGA with w/w. Pt left in recliner with alarm active and call light in reach. Continue POC when able. RAMONE Tello/TERI Olivier/Linda
--- NOTE | 2020-07-17 11:08 | NUR ---
PHYSICAL THERAPY TREATMENT TIME: IN 10:35 AM - OUT 10:55 AM 20 MINUTES PRESENTATION: Patient presented to therapy in supine Head of bed elevated identified by name and on wristband Informed consent for treatment given COMPLAINTS: 7/10 PAIN in the L Shoulder 2/10 pain in the R hip without activity. WB bearing status: WBAT on the R Hip ASSISTIVE DEVICE: Wh Walker TRANSFERS: Supine to sitting EOB: CGA- MIN A X 1 Sitting on EOB: SBA STS <> EOB: CGA STS <> commode: CGA - MIN A X 1 TREATMENT: GAIT with Wh Walker and CGA 50' X 1 AND THEN AGAIN 35' X 1 RESPONSE TO TREATMENT: Patient's gait distance has improved since last therapy session. Patient had no increased R hip/LE pain while ambulating Patient had no SOB or LOB during gait or transfers CONCLUSION: Patient was left in seated position in bedside chair Call light within reach Chair alarm tested and attached LEs in low position BHARAT COOPER NURSE CONSULTANT
--- NOTE | 2020-07-17 11:37 | NUR ---
Attempted to reach sister, Kristyn, regarding [facility] not able to accept patient at this time and referral sent to [facility]. Awaiting return call.
[2020-07-17 12:00] VITALS: BP 138/76
--- NOTE | 2020-07-17 13:39 | NUR ---
PT C/O OF RIGHT SHOULDER PAIN R/T TO CANCER DX PAIN RATING 5/10 PRN PERCOCET GIVEN PER ORDER
--- NOTE | 2020-07-17 13:40 | NUR ---
OT NOTE Upon arrival pt was sitting in recliner agreeable to 15 minute OT session. identified by name and date of with no complaints. Sit-stand from recliner CGA with w/w for UB support. Functional mobility from recliner to bathroom CGA with w/w. Transferring on and off commode CGA with w/w and grab bar. Vimal Navarrete. Functional mobility from bathroom to EOB CGA with w/w. Pt able to position self in bed at CGA. Call light in reach with alarm active. Continue with POC when able. RAMONE Tello/TERI Olivier/Linda
--- NOTE | 2020-07-17 14:00 | NUR ---
PT RESTING IN BED WITH EYES CLOSED NO COMPLAINTS OF PAIN AT THIS TIME
[2020-07-17 16:00] VITALS: BP 134/70
--- NOTE | 2020-07-17 16:55 | NUR ---
PHYSICAL THERAPY TREATMENT TIME: 1:40 PM - 2:00 PM 20 MINUTES PRESENTATION: Patient was sitting in bedside chair upon this CHOIR DIRECTOR arriving in room COMPLAINTS: Patient reports moderate pain in the R hip when he ambulates or is active. WT BEARING STATUS: WBAT R LE ASSISTIVE DEVICE: Wh Walker TRANSFERS: STS out of bedside chair: CGA STS from Commode: CGA Sit EOB to supine : MIN A X 2 TREATMENT: Gait with Wh Walker and CGA for 20' X 2 No LOB No significant increased pain in R hip CONCLUSION: Patient left in supine in bed with call light within reach Bed alarm activated Head of bed elevated BHARAT COOPER CHOIR DIRECTOR
--- NOTE | 2020-07-17 17:28 | NUR ---
PT C/O OF RIGHT HIP PAIN RATING 5/10 PRN PERCOCET GIVEN PER ORDER
--- NOTE | 2020-07-17 18:00 | NUR ---
PER PT PERCOCET WAS EFFECTIVE FOR PAIN
--- NOTE | 2020-07-17 19:00 | NUR ---
REPORT RECEIVED. PT LYING IN BED, NO COMPLAINTS. CALL LIGHT IN REACH
[2020-07-17 20:00] VITALS: BP 124/77
--- NOTE | 2020-07-17 21:20 | NUR ---
PT REFUSING BLOOD SUGAR CHECK. STATES "I DONT NEED THAT"
--- NOTE | 2020-07-17 21:27 | NUR ---
PRN PERCOCET GIVEN FOR RIGHT HIP PAIN. WILL MONITOR
--- NOTE | 2020-07-17 22:25 | NUR ---
PERCOCET APPEARS EFFECTIVE, PT ASLEEP
--- NOTE | 2020-07-17 22:37 | NUR ---
24 HR chart check completed.
[2020-07-18] VITALS: BP 127/76
--- NOTE | 2020-07-18 01:00 | NUR ---
PT ASLEEP AT THIS TIME.
--- NOTE | 2020-07-18 04:00 | NUR ---
PT SLEEPING AT THIS TIME. RESPS EASY AND UNLABORED. CALL LIGHT IN REACH
--- NOTE | 2020-07-18 06:00 | NUR ---
IN TO SEE PT. PT SLEEPING AND AWAKENS EASILY. NO COMPLAINTS.
[2020-07-18 08:00] VITALS: BP 140/76
--- NOTE | 2020-07-18 09:19 | NUR ---
PT C/O RIGHT SHOULD PAIN R/10 PRN PERCOCET GIVEN PER ORDER
--- NOTE | 2020-07-18 10:00 | NUR ---
PER PT PERCOCET WAS EFFECTIVE FOR PAIN
[2020-07-18 12:00] VITALS: BP 143/76
--- NOTE | 2020-07-18 15:40 | NUR ---
PHYSICAL THERAPY TREATMENT TIME: OUT 3:14 PM 20 MINUTES PRESENTATION: Patient presented supine in bed with head of bed elevated Bed alarm was not on Patient gives informed consent for treatment Identified by name and on wristband Patient says he is depressed because his brother is dying of cancer. No spO2 No IVs COMPLAINTS: Patient with 0/10 pain in the R hip and LE WT. BEARING STATUS: WBAT on R LE ASSISTIVE DEVICE: Wh Walker TRANSFERS: Supine <> sitting on EOB: SBA Sitting on EOB: SBA STS <> EOB: SBA Sit EOB <> SUPINE IN BED: SBA TREATMENT: GAIT with Wh Walker and CGA for 50' x 2 and a third GAIT of 30' x 1 30 sec STS test: 12 sit to stands in 30 seconds time from EOB with SBA with use of UEs. RESPONSE TO TREATMENT: Patient tolerated gait and transfers well No LOB Minimal SOB No increased pain in the R hip or LE Patient has a step-to gait instead of stepping through Verbal cues for upright posture and safety with Wh Walker CONCLUSION: Patient was left in supine in bed with head of bed elevated Call light within reach Bed alarm activated Tray table near patient BHARAT COOPER SUPERVISOR ORE DRESSING
[2020-07-18 16:00] VITALS: BP 119/82
--- NOTE | 2020-07-18 16:10 | NUR ---
PT C/O OF RIGHT SHOULDER PAIN AND HIP PAIN RATING 4/10 PRN PERCOCET GIVEN PT REPOSITIONED FOR COMFORT
--- NOTE | 2020-07-18 17:00 | NUR ---
PER PT PRN PEROCET WAS EFFECTIVE
--- NOTE | 2020-07-18 19:10 | NUR ---
REPORT RECEIVED. PT WATCHING TV AT THIS TIME. VOICES NO COMPLAINTS. CALL LIGHT IN REACH
[2020-07-18 20:00] VITALS: BP 125/79
--- NOTE | 2020-07-18 21:03 | NUR ---
PERCOCET GIVEN PER ORDER FOR COMPLAINTS OF R HIP AND L SHOULDER PAIN.WILL MONITOR
--- NOTE | 2020-07-18 22:00 | NUR ---
PERCOCET APPEARS EFFECTIVE, PT ASLEEP
[2020-07-19] VITALS: BP 145/78
--- NOTE | 2020-07-19 04:00 | NUR ---
PT SLEEPING AT THIS TIME. RESPIRATIONS EASY. CALL LIGHT IN REACH
[2020-07-19 06:05] LABS: BUN 13 mg/dl (7-24); CHLORIDE 109 mmol/L (98-107); POTASSIUM 3.3 mmol/L (3.5-5.1); SODIUM 140 mmol/L (136-145)
[2020-07-19 06:07] LABS: EOS # 0.1 10*3/uL (0.0-0.4); EOS % 2.4 % (1.0-4.0); LYMPH # 0.7 10*3/uL (1.3-4.4); LYMPH % 17.1 % (27.0-41.0); MEAN CELL VOLUME 83.6 fl (80.0-94.0); MEAN CORPUSCULAR HGB 26.6 pg (27.0-31.0); MEAN CORPUSCULAR HGB CONC 31.8 g/dl (33.0-37.0); MEAN PLATELET VOLUME 9.7 fl (9.6-12.3); MONO # 0.7 10*3/uL (0.1-1.0); MONO % 17.3 % (3.0-9.0); NEUT # 2.6 10*3/uL (2.3-7.9); PLATELET COUNT AUTOMATED 182 10*3/uL (130-400); RED BLOOD COUNT 3.35 10*6/uL (4.50-5.90); RED CELL DISTRI WIDTH 20.6 % (0-14.5); WHITE BLOOD COUNT 4.2 10*3/uL (4.8-10.8)
[2020-07-19 08:00] VITALS: BP 166/90
[2020-07-19 12:00] VITALS: BP 130/68
[2020-07-19 16:00] VITALS: BP 137/70
--- NOTE | 2020-07-19 16:00 | NUR ---
Pt declined therapy today, states had a in the family and not up to it. 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
--- NOTE | 2020-07-19 18:15 | NUR ---
PATIENT C/O BODY PAIN IN HIP AND DUE TO CANCER. GAVE DILAUDID PERSCRIBED. PATIENT REPORTED RELIEF. HE IS RESTING WELL.
[2020-07-19 20:00] VITALS: BP 137/62
--- NOTE | 2020-07-19 20:40 | NUR ---
PT SEEN AND ASSESSED. DRESSING TO RIGHT HIP D/I UNABLE TO VISULAIZE INCISION. PT C/O GENERALIZED PAIN AND RIGHT HIP PAIN. PT STATES HIS PAIN IS A 7/10. PRN PAIN MEDICATION GIVEN. WILL REASSESS.
--- NOTE | 2020-07-19 21:40 | NUR ---
PT RESTING IN BED, PT STATES HIS PAIN HAS IMPROVED. PT STATES HIS PAIN IS NOW 4/10 AND IS TOLERABLE. PT REVIEWED NON-PHARMACOLOGICAL TECHNIQUES SUCH REPOSITIONING TO ALLEVIATE PAIN.
[2020-07-20] VITALS: BP 116/53
--- NOTE | 2020-07-20 02:12 | NUR ---
24 HR chart check completed.
[2020-07-20 04:00] VITALS: BP 155/68
[2020-07-20 06:20] LABS: BASO % 0.9 % (0.0-1.0); EOS # 0.1 10*3/uL (0.0-0.4); EOS % 1.4 % (1.0-4.0); HEMATOCRIT 27.7 % (42.0-52.0); LYMPH # 0.7 10*3/uL (1.3-4.4); MEAN CELL VOLUME 82.4 fl (80.0-94.0); MEAN CORPUSCULAR HGB 26.2 pg (27.0-31.0); MEAN CORPUSCULAR HGB CONC 31.8 g/dl (33.0-37.0); MONO # 0.8 10*3/uL (0.1-1.0); MONO % 17.7 % (3.0-9.0); NEUT # 2.7 10*3/uL (2.3-7.9); NEUT % 62.5 % (47.0-73.0); PLATELET COUNT AUTOMATED 183 10*3/uL (130-400); RED BLOOD COUNT 3.36 10*6/uL (4.50-5.90); RED CELL DISTRI WIDTH 20.6 % (0-14.5); WHITE BLOOD COUNT 4.4 10*3/uL (4.8-10.8)
[2020-07-20 06:30] LABS: CREATININE 0.52 mg/dL (0.70-1.30)
[2020-07-20 08:00] VITALS: BP 151/81
--- NOTE | 2020-07-20 08:40 | NUR ---
PT RESTING IN BED. RESP-EASY AND REGULAR. C/O BILATERAL SHOULDER PAIN AND RIGHT KNEE PAIN, RATES PAIN 5 ON PAIN SCALE 0-10. PT REPOSITIONS SELF IN BED. CALL LIGHT IN REACH. WILL CON'T TO MONITOR.
--- NOTE | 2020-07-20 08:45 | NUR ---
PT WALKING WITH PHYSICAL THERAPY.
--- NOTE | 2020-07-20 09:00 | NUR ---
CM in to see patient. He is currently sitting on the edge of his bed working with therapy. Discussed waiting on insurance precert for him to be discharged to [facility]. He states his brother yesterday morning and he was wondering when the will be. Will reach out to sister, Kristyn. When medically stable and precert is received he will be discharged to [place]. 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
--- NOTE | 2020-07-20 09:15 | NUR ---
OT NOTE Upon arrival pt was laying supine in bed with head eleavted agreeable to 25 minute OT session. Pt identified by name and date of with complaints of 6/10 right hip pain and 6/10 left shoulder pain. Transfer supine to EOB Landon X2. While seated EOB pt was able to jose left hospital sock at CGA, however was maxA to jose right sock due to pain. Sitting balance was good-. Sit-stand from EOB CGA with w/w for UB support and safety. Functional mobility from EOB, down hallway, and back to bathroom CGA with w/w for safety. Pt stood at toilet unsupported to urinate with CGA. Standing balance F+. Pt stood sink side unsupported to wash hands at CGA. Functional mobility from bathroom to recliner CGA with w/w.Pt able to tolerate approx 10 minutes of activity with one standing rest break in between. call light in reach with body alarm attached. Continue with POC when able. RAMONE Tello/TERI Olivier/Linda
--- NOTE | 2020-07-20 09:40 | NUR ---
PT SITTING UP IN RECLINER CHAIR EATING. STATES PAIN MEDICATION HELPED. NO NEW C/O AT THIS TIME. CALL LIGHT IN REACH.
--- NOTE | 2020-07-20 10:13 | NUR ---
DR. DONG INTO GIVE PT INJECTION IN LEFT SHOULDER. PT TOLERATED. SITTING UP IN CHAIR. CALL LIGHT IN REACH.
--- NOTE | 2020-07-20 10:15 | NUR ---
PHYSICAL THERAPY Patient seen this am 1;1 for therapy visit and was resting supine in bed upon therapist arrival. Patient identified by name / and reports 6/10 L shoulder, R hip pain. OT community assistant was also present this morning for observation only as patient transfers supine to sit EOB with MIN A x 2. Patient needed a minute or so to collect himself then completed sit to stand transfer CGA x 1. Patient ambulated 45'x 1, use of wh walker, CGA, demonstrating very slow, cautious, "step to" gait pattern, followed by additional 20'x 1 after brief seated rest EOB secondary to increased fatigue. Patient also needed v/c to improve safe step sequence during 180 degree turn around and returned to bedside chair, remaining with call light, tray table, telephone, body alarm as breakfast arrived. Will continue per POC as tolerated, total treatment time 18 minutes. Jose L Eagle, SALES REVIEW CLERK
--- NOTE | 2020-07-20 10:54 | NUR ---
Patients updated clinicals and therapy notes faxed to [facility] to continue precert updates. Waiting on auth.
--- NOTE | 2020-07-20 11:01 | NUR ---
Pass/rr completed in [facility] for snf placement
[2020-07-20 12:00] VITALS: BP 146/83
--- NOTE | 2020-07-20 12:50 | NUR ---
PHYSICAL THERAPY Patient seen this pm 1;1 for therapy visit and was supine in bed upon therapist arrival. Patient identified by name / and reports no c/o's of L shoulder pain following pain shot this morning, 5/10 R hip pain. OT surgical assistant certified was also present this afternoon for observation only this session as patient transfers supine to sit EOB with MIN A. Patient is WBAT on R LE, transfering sit to stand CGA x 1 and ambulating CGA, use of wh walker standing support. Patient demonstrates slow, cautious, "step to" gait pattern, and able to take 2-3 backward steps without LOB. Patient fatigues quickly, needing brief standing rest break, < 30 seconds prior to returning to bedside chair for a total of 50'x 2. Patient remained in chair with call light, tray table, telephone and body alarm for safety. Will continue per POC as tolerated, total treatment time 18 minutes. Jose L Eagle, DERRICK BUILDER
--- NOTE | 2020-07-20 12:51 | NUR ---
OT NOTE Upon arrival pt was laying supine in bed agreeable to 15 minute OT session. Identified by name and date of with complaints of 5/10 right hip pain. Transfer supine to EOB Landon x2. Sit-stand from EOB CGA with w/w for UB support and safety. Functional mobility from EOB, around the room, and back to recliner CGA with w/w. Standing balance throughout session was F+. Pt tolerated approx 10 minutes of activity with one standing rest break in between. Pt left in recliner with body alarm active and call light in reach. Continue with POC when able. RAMONE Tello/TERI Olivier/Linda
--- NOTE | 2020-07-20 13:48 | NUR ---
Received call from sister, Kristyn, regarding discharge planning. Discussed [facility] not able to take patient. He's been referred to [facility] and just waiting on insurance authorization. She states their brother's viewing is Monday between 5-6pm.
[2020-07-20 16:00] VITALS: BP 115/66
--- NOTE | 2020-07-20 16:00 | NUR ---
PT ASSISTED BACK TO BED WITH 2 ASSIST. RESP-EASY AND REGULAR. BED ALARM ON. CALL LIGHT IN REACH. SEE SHIFT ASSESSMENT.
[2020-07-20 20:00] VITALS: BP 141/80
[2020-07-21] VITALS: BP 138/48
--- NOTE | 2020-07-21 02:24 | NUR ---
PATIENT MEDICATED WITH PERCOCET FOR COMPLAINTS OF RIGHT HIP PAIN. WILL MONITOR FOR EFFECTIVENESS. CALL LIGHT IN REACH.
--- NOTE | 2020-07-21 03:15 | NUR ---
PERCOCET EFFECTIVE. PATIENT IN BED SLEEPING AT THIS TIME. NO SIGNS OR SYMPTOMS OF DISTRESS NOTED. CALL LIGHT IN REACH.
--- NOTE | 2020-07-21 07:00 | NUR ---
Received auth for patient to go to snf at [facility]. Patient is ok to go if medically stable for discharge.
[2020-07-21 08:00] VITALS: BP 124/62
--- NOTE | 2020-07-21 08:30 | NUR ---
CM in to see patient. He is sitting up in his bedside chair. He can be discharged to [facility] when medically stable.
--- NOTE | 2020-07-21 08:37 | NUR ---
PT UP AMBULATING WITH THERAPY
--- NOTE | 2020-07-21 08:44 | NUR ---
OT NOTE Upon arrival pt was laying supine in bed agreeable to 25 minute OT session. Identified by name and date of with complaints of 6/10 right hip pain. Transfer supine to EOB SBA. Pt able to jose left hospital sock at SBA using compensatory method bringing left leg to chest level and right sock maxA due to pain. Sit-stand from EOB CGA with w/w for UB support and safety. Functional mobility from EOB to bathroom CGA with w/w. Pt able to stand at commode unsupprted to urinate at CGA. Balance GOOD-. Pt stood sink side unsupported to wash hands at CGA. Functional mobility from bathroom, down the hallway, and back to recliner CGA with w/w. Pt able to tolerate approx 10 minutes of activity without fatigue. Pt left in recliner with alarm active and call light in reach. Continue with POC when able. RAMONE Tello/TERI Olivier/Linda
--- NOTE | 2020-07-21 08:59 | NUR ---
PT REQUESTED AND GIVEN PERCOCET FOR C/O RIGHT LE PAIN / PT RATES PAIN 5/10 WILL MONITOR
--- NOTE | 2020-07-21 09:30 | NUR ---
PT STATES THAT PERCOCET HELPED WILL MONITOR
--- NOTE | 2020-07-21 09:51 | NUR ---
PHYSICAL THERAPY TREATMENT TIME: 08:41 AM 24 MINUTES PRESENTAION: Patient presented to therapy in supine with head of bed elevated and bed alarm on. Informed consent given for treatment Identified by name and on wristband COMPLAINTS: R KNEE PAIN No L shoulder pain/ Patient had injection in shoulder yesterday for pain R hip pain WB STATUS: WBAT on R HIP ASSISTIVE DEVICE: Wh Walker TRANSFERS: Supine to sitting on EOB: SBA Sitting on EOB: SBA STS from EOB: SBA- CGA STS from commode: SBA - CGA Verbal cues for hand placement when performing STS Verbal cues for advancing LEs to swing-through instead of swing-to. Verbal cues for upright posture and locking knees into extension to prevent knee buckle. 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
--- NOTE | 2020-07-21 11:00 | NUR ---
PHYSICAL THERAPY Patient seen this morning for second therapy visit and was sitting up in bedside chair upon therapist arrival. Patient identified by name / and reports increased R hip / knee sorenes, but not enough pain to rate on 0-10 pain scale. Patient transfers sit to stand from low chair surface, MIN A with "rocking" motion and ambulates with use of wh walker, CGA, 40'x 1. Patient demonstrates slow bhaskar, decreased stride and very cautious during all 180 degree turns. Patient returned to supine in bed with inceased fatigue and remained with call light, tray table, telephone, bed alarm for safety. Will continue per POC as tolerated, total treatment time 16 minutes. Jos eL Eagle, PLASMA PROCESSING CENTRIFUGE OPERATOR
--- NOTE | 2020-07-21 11:15 | NUR ---
OT NOTE Upon arrival pt was sitting in recliner agreeable to 15 minute OT session. Identified by name and date of with no complaints. Sit-stand from recliner SBA with w/w for UB support and safety. Functional mobility from recliner, around room, and back to bed CGA with w/w. While standing EOB pts Dynamic standing balance was challenged by weight shifting/crossing midline at CGA. Balamce F+. Pt able to position self in bed at Landon x2 to be pulled up. Callight in reach and alarm active. Continue with POC when able. RAMONE Tello/TERI Olivier/Linda
[2020-07-21 12:00] VITALS: BP 140/73
[2020-07-21] MEDS ORDERED: Humalog SQ (13:30)
[2020-07-21] MEDS ORDERED: LISINOPRIL10 M1 PO (13:30)
[2020-07-21] MEDS ORDERED: VITAMIN D350 MC2 PO (13:30)
[2020-07-21] MEDS ORDERED: ASPIRIN ADULT L81 M2 PO (13:30)
[2020-07-21] MEDS ORDERED: PERCOCET 5-3251 EACH PO (13:30)
--- NOTE | 2020-07-21 14:07 | NUR ---
Received call from sister, Kristyn. She was asking about bringing the patient clothes to [place] and where the facility was located. Gave directions. She asked about patient being able to go to his brother's tomorrow. Per master planner [place] will allow patient to go to . Informed sister patient will be discharging later today to [place].
--- NOTE | 2020-07-21 14:30 | NUR ---
[facility] is [facility] at 4:30 PM. NH, nursing, process steward and patients sister all notified. Discharge summary faxed.
[2020-07-21 16:00] VITALS: BP 132/84
--- NOTE | 2020-07-21 18:09 | NUR ---
REPORT CALLED TO [facility]
--- NOTE | 2020-07-21 18:10 | NUR ---
Discharge instructions reviewed with patient/family. Patient receptive and verbalizes understanding. Follow-up care arranged. Written instructions given to patient/family. ESME CASTANO
--- NOTE | 2020-07-22 11:24 | NUR ---
PHYSICAL THERAPY CO-SIGN I approve of the Physical Therapy notes written above. ISSAC ARAYA PT, DPT
--- NOTE | 2020-07-22 16:50 | NUR ---
OCCUPATIONAL THERAPY CO-SIGN I approve of the Occupational Therapy notes written above. RADHIKA PLASCENCIA OTR/Linda
== END 2020-07-21 18:10 | disposition other institution (70) | DRG 480 ==
LOC: ED 09:25 → 4E 13:16 → 4NE 13:16 → EDHOLD 13:16 → 5E 13:16 → 4E 13:59 → 4NE 20:20 → 5E 07-17 16:23
PROVIDERS: Internal Medicine; Nurse Practitioner Family; ADMIT Internal Medicine; ATTEND Internal Medicine
PROC: 0QH606Z Insertion of Intramedullary Internal Fixation Device into Right Upper Femur, Open Approach (ICD-10-PCS; principal; 2020-07-14)
PROC: 3E0U33Z Introduction of Anti-inflammatory into Joints, Percutaneous Approach (ICD-10-PCS; 2020-07-20)
DX: S72.144A Nondisplaced intertrochanteric fracture of right femur, initial encounter for closed fracture (principal); E43 Unspecified severe protein-calorie malnutrition; C15.9 Malignant neoplasm of esophagus, unspecified; C79.31 Secondary malignant neoplasm of brain; C79.89 Secondary malignant neoplasm of other specified sites; Z68.1 Body mass index [BMI] 19.9 or less, adult; D64.9 Anemia, unspecified; I10 Essential (primary) hypertension; E11.9 Type 2 diabetes mellitus without complications; R74.0 Nonspecific elevation of levels of transaminase and lactic acid dehydrogenase [LDH]; E55.9 Vitamin D deficiency, unspecified; Z20.828 Contact with and (suspected) exposure to other viral communicable diseases; M12.812 Other specific arthropathies, not elsewhere classified, left shoulder; E87.6 Hypokalemia; J44.9 Chronic obstructive pulmonary disease, unspecified; Z86.718 Personal history of other venous thrombosis and embolism; Z86.73 Personal history of transient ischemic attack (TIA), and cerebral infarction without residual deficits; W18.39XA Other fall on same level, initial encounter; Y93.89 Activity, other specified; Y92.89 Other specified places as the place of occurrence of the external cause; Y99.8 Other external cause status

== ENCOUNTER → 2020-08-04 | Outpatient (CLI) | payer OTHER ==
[~2020-08-04] MED LIST changes: +ASPIRIN ADULT L81 M2 PO; +GLUCOPHAGE500 M1 PO; +Humalog SQ; +JARDIANCE10 MG PO; +KEPPRA500 MG PO; +LISINOPRIL10 M1 PO; +LISINOPRIL5 MG PO; +METHOTREXATE2.5 MG PO; +METOPROLOL TART50 M1 PO; +PERCOCET 5-3251 EACH PO; +VITAMIN D350 MC2 PO
== END | disposition home or self-care (01) ==
LOC: ORTHO 00:38
PROVIDERS: ATTEND Orthopaedic Surgery
DX: S72.144D Nondisplaced intertrochanteric fracture of right femur, subsequent encounter for closed fracture with routine healing (principal); X58.XXXD Exposure to other specified factors, subsequent encounter

== ENCOUNTER 2020-11-11 19:47 | Inpatient (IN) | payer OTHER ==
[~2020-11-11] VITALS: Ht 170.2 cm; Wt 52.6 kg
[2020-11-11 19:50] VITALS: BP 165/95
[2020-11-11 22:45] VITALS: BP 150/91
[2020-11-12] VITALS (9 sets, daily range): BP systolic 123–153; BP diastolic 59–98
[2020-11-12 05:46] LABS: ALBUMIN 2.1 gm/dl (3.1-4.5); ALKALINE PHOSPHATASE 714 U/L (45-117); BUN 17 mg/dl (7-24); CHLORIDE 106 mmol/L (98-107); CHOLESTEROL 112 mg/dL (<200); CREATININE 0.58 mg/dL (0.70-1.30); FREE T4 1.19 ng/dl (0.76-1.46); HDL CHOLESTEROL 32 mg/dl (40-60); LDL CHOLESTEROL 63 mg/dL (9-159); POTASSIUM 3.4 mmol/L (3.5-5.1); SGOT/AST 19 IU/L (3-35); SGPT/ALT 49 U/L (12-78); SODIUM 137 mmol/L (136-145); TOTAL PROTEIN 7.3 gm/dL (6.4-8.2); TRIGLYCERIDES 84 mg/dl (<150); VLDL CHOLESTEROL 17 mg/dL (6-40)
[2020-11-12 05:51] LABS: THYROID STIM HORMONE (HS) 0.695 uIU/ml (0.358-4.75)
[2020-11-12 06:10] LABS: BASO % 0.6 % (0.0-1.0); EOS # 0.1 10*3/uL (0.0-0.4); EOS % 1.1 % (1.0-4.0); HEMATOCRIT 29.5 % (42.0-52.0); LYMPH # 0.7 10*3/uL (1.3-4.4); LYMPH % 10.9 % (27.0-41.0); MEAN CELL VOLUME 90.2 fl (80.0-94.0); MEAN CORPUSCULAR HGB 28.4 pg (27.0-31.0); MEAN CORPUSCULAR HGB CONC 31.5 g/dl (33.0-37.0); MEAN PLATELET VOLUME 9.7 fl (9.6-12.3); MONO # 0.7 10*3/uL (0.1-1.0); MONO % 10.3 % (3.0-9.0); NEUT # 5.1 10*3/uL (2.3-7.9); NEUT % 76.6 % (47.0-73.0); PLATELET COUNT AUTOMATED 283 10*3/uL (130-400); RED BLOOD COUNT 3.27 10*6/uL (4.50-5.90); RED CELL DISTRI WIDTH 16.7 % (0-14.5); WHITE BLOOD COUNT 6.6 10*3/uL (4.8-10.8)
[2020-11-12 06:17] LABS: ACT PARTIAL THROMBO TIME 26.2 SECONDS (20.0-32.1); INTERNATIONAL NORM RATIO 1.1 (2.0-3.5)
[2020-11-12 14:20] LABS: VITAMIN D, 25-HYDROXY 26.5 ng/mL (30-100)
[2020-11-13] VITALS (7 sets, daily range): BP systolic 84–146; BP diastolic 57–91
[2020-11-13 07:06] LABS: BASO % 0.4 % (0.0-1.0); EOS % 0.5 % (1.0-4.0); HEMATOCRIT 27.8 % (42.0-52.0); LYMPH # 0.8 10*3/uL (1.3-4.4); LYMPH % 10.3 % (27.0-41.0); MEAN CELL VOLUME 89.4 fl (80.0-94.0); MEAN CORPUSCULAR HGB 28.6 pg (27.0-31.0); MEAN PLATELET VOLUME 8.9 fl (9.6-12.3); MONO # 0.9 10*3/uL (0.1-1.0); MONO % 11.9 % (3.0-9.0); NEUT # 5.7 10*3/uL (2.3-7.9); NEUT % 76.4 % (47.0-73.0); PLATELET COUNT AUTOMATED 246 10*3/uL (130-400); RED BLOOD COUNT 3.11 10*6/uL (4.50-5.90); RED CELL DISTRI WIDTH 16.8 % (0-14.5); WHITE BLOOD COUNT 7.5 10*3/uL (4.8-10.8)
[2020-11-13 07:42] LABS: ALBUMIN 1.9 gm/dl (3.1-4.5); ALKALINE PHOSPHATASE 563 U/L (45-117); BUN 21 mg/dl (7-24); CHLORIDE 105 mmol/L (98-107); CREATININE 0.63 mg/dL (0.70-1.30); POTASSIUM 3.7 mmol/L (3.5-5.1); SGOT/AST 15 IU/L (3-35); SGPT/ALT 33 U/L (12-78); SODIUM 136 mmol/L (136-145); TOTAL PROTEIN 6.9 gm/dL (6.4-8.2)
[2020-11-14] VITALS: BP 157/95
[2020-11-14 07:45] LABS: BASO % 0.4 % (0.0-1.0); EOS % 0.4 % (1.0-4.0); HEMATOCRIT 28.1 % (42.0-52.0); LYMPH # 0.6 10*3/uL (1.3-4.4); LYMPH % 7.6 % (27.0-41.0); MEAN CELL VOLUME 89.2 fl (80.0-94.0); MEAN CORPUSCULAR HGB 28.3 pg (27.0-31.0); MEAN CORPUSCULAR HGB CONC 31.7 g/dl (33.0-37.0); MEAN PLATELET VOLUME 9.6 fl (9.6-12.3); MONO # 0.8 10*3/uL (0.1-1.0); MONO % 10.7 % (3.0-9.0); NEUT # 6.2 10*3/uL (2.3-7.9); NEUT % 80.4 % (47.0-73.0); PLATELET COUNT AUTOMATED 264 10*3/uL (130-400); RED BLOOD COUNT 3.15 10*6/uL (4.50-5.90); RED CELL DISTRI WIDTH 16.7 % (0-14.5); WHITE BLOOD COUNT 7.7 10*3/uL (4.8-10.8)
[2020-11-14 08:00] VITALS: BP 177/93
[2020-11-14 08:19] LABS: ALKALINE PHOSPHATASE 508 U/L (45-117); BUN 25 mg/dl (7-24); CHLORIDE 105 mmol/L (98-107); CREATININE 0.58 mg/dL (0.70-1.30); POTASSIUM 3.6 mmol/L (3.5-5.1); SGOT/AST 18 IU/L (3-35); SGPT/ALT 28 U/L (12-78); SODIUM 136 mmol/L (136-145); TOTAL PROTEIN 7.2 gm/dL (6.4-8.2)
[2020-11-14 12:00] VITALS: BP 135/83
[2020-11-14 16:00] VITALS: BP 102/51
[2020-11-14 20:00] VITALS: BP 150/80
[2020-11-15] VITALS: BP 125/78
[2020-11-15 06:49] LABS: BASO % 0.2 % (0.0-1.0); EOS % 0.2 % (1.0-4.0); HEMATOCRIT 27.6 % (42.0-52.0); LYMPH # 0.5 10*3/uL (1.3-4.4); LYMPH % 5.5 % (27.0-41.0); MEAN CELL VOLUME 89.6 fl (80.0-94.0); MEAN CORPUSCULAR HGB 28.6 pg (27.0-31.0); MEAN CORPUSCULAR HGB CONC 31.9 g/dl (33.0-37.0); MEAN PLATELET VOLUME 9.8 fl (9.6-12.3); MONO # 0.8 10*3/uL (0.1-1.0); MONO % 8.6 % (3.0-9.0); NEUT # 7.9 10*3/uL (2.3-7.9); PLATELET COUNT AUTOMATED 233 10*3/uL (130-400); RED BLOOD COUNT 3.08 10*6/uL (4.50-5.90); RED CELL DISTRI WIDTH 16.8 % (0-14.5); WHITE BLOOD COUNT 9.3 10*3/uL (4.8-10.8)
[2020-11-15 07:12] LABS: ALBUMIN 1.7 gm/dl (3.1-4.5); BUN 27 mg/dl (7-24); CHLORIDE 105 mmol/L (98-107); POTASSIUM 3.9 mmol/L (3.5-5.1); SGOT/AST 424 IU/L (3-35); SGPT/ALT 254 U/L (12-78); SODIUM 135 mmol/L (136-145); TOTAL PROTEIN 6.9 gm/dL (6.4-8.2)
[2020-11-15 07:32] LABS: ALKALINE PHOSPHATASE 1222 U/L (45-117)
[2020-11-15 08:00] VITALS: BP 97/60
[2020-11-15 12:00] VITALS: BP 105/58
[2020-11-15 16:00] VITALS: BP 103/68
[2020-11-15 20:00] VITALS: BP 109/71
[2020-11-16] VITALS: BP 144/86
[2020-11-16 06:30] LABS: BASO % 0.3 % (0.0-1.0); EOS # 0.1 10*3/uL (0.0-0.4); EOS % 1.1 % (1.0-4.0); HEMATOCRIT 28.3 % (42.0-52.0); LYMPH # 0.5 10*3/uL (1.3-4.4); LYMPH % 8.2 % (27.0-41.0); MEAN CELL VOLUME 90.1 fl (80.0-94.0); MEAN CORPUSCULAR HGB 28.7 pg (27.0-31.0); MEAN CORPUSCULAR HGB CONC 31.8 g/dl (33.0-37.0); MONO # 0.7 10*3/uL (0.1-1.0); MONO % 11.2 % (3.0-9.0); NEUT # 5.1 10*3/uL (2.3-7.9); NEUT % 78.6 % (47.0-73.0); PLATELET COUNT AUTOMATED 254 10*3/uL (130-400); RED BLOOD COUNT 3.14 10*6/uL (4.50-5.90); RED CELL DISTRI WIDTH 16.8 % (0-14.5); WHITE BLOOD COUNT 6.5 10*3/uL (4.8-10.8)
[2020-11-16 06:50] LABS: ALBUMIN 1.8 gm/dl (3.1-4.5); BUN 25 mg/dl (7-24); CHLORIDE 104 mmol/L (98-107); CREATININE 0.59 mg/dL (0.70-1.30); POTASSIUM 3.9 mmol/L (3.5-5.1); SGOT/AST 270 IU/L (3-35); SGPT/ALT 237 U/L (12-78); SODIUM 135 mmol/L (136-145); TOTAL PROTEIN 7.1 gm/dL (6.4-8.2)
[2020-11-16 07:05] LABS: ALKALINE PHOSPHATASE 1076 U/L (45-117)
[2020-11-16 08:00] VITALS: BP 147/77
[2020-11-16 12:00] VITALS: BP 123/65
[2020-11-16] MEDS ORDERED: MIRTAZAPINE15 M2 PO (13:18)
[2020-11-16] MEDS ORDERED: Percocet 325 MG1 TAB PO (13:18)
[2020-11-16] MEDS ORDERED: HUMALOG100 UNIT/1 SQ (13:18)
== END 2020-11-16 15:30 | disposition other institution (70) | DRG 553 ==
LOC: ED 19:47 → EDHOLD 21:24 → 5E 21:24 → EDHOLD 21:34 → 5E 11-12 12:54
PROVIDERS: Emergency Medicine; Hospitalist; Social Worker Clinical; ADMIT Internal Medicine; ATTEND Internal Medicine
DX: M12.812 Other specific arthropathies, not elsewhere classified, left shoulder (principal); E43 Unspecified severe protein-calorie malnutrition; M84.50XA Pathological fracture in neoplastic disease, unspecified site, initial encounter for fracture; C79.9 Secondary malignant neoplasm of unspecified site; C16.0 Malignant neoplasm of cardia; C15.9 Malignant neoplasm of esophagus, unspecified; Z68.1 Body mass index [BMI] 19.9 or less, adult; L89.152 Pressure ulcer of sacral region, stage 2; Z66 Do not resuscitate; Z51.5 Encounter for palliative care; E55.9 Vitamin D deficiency, unspecified; R62.7 Adult failure to thrive; G93.89 Other specified disorders of brain; Z20.822 Contact with and (suspected) exposure to COVID-19; F17.210 Nicotine dependence, cigarettes, uncomplicated; Z79.4 Long term (current) use of insulin; E11.9 Type 2 diabetes mellitus without complications; J44.9 Chronic obstructive pulmonary disease, unspecified; I10 Essential (primary) hypertension; G89.29 Other chronic pain; Z78.9 Other specified health status; Z82.49 Family history of ischemic heart disease and other diseases of the circulatory system; Z86.718 Personal history of other venous thrombosis and embolism; Z79.82 Long term (current) use of aspirin; Z79.899 Other long term (current) drug therapy; Z79.1 Long term (current) use of non-steroidal anti-inflammatories (NSAID)

== ENCOUNTER 2020-11-29 09:20 | Emergency (ER) | payer OTHER ==
[~2020-11-29 09:20] MED LIST changes: +HUMALOG100 UNIT/1 SQ; +MIRTAZAPINE15 M2 PO; +Percocet 325 MG1 TAB PO
== END 2020-11-29 11:42 ==
LOC: ED 09:20
DX: I46.9 Cardiac arrest, cause unspecified (principal); E11.9 Type 2 diabetes mellitus without complications; J44.9 Chronic obstructive pulmonary disease, unspecified; I10 Essential (primary) hypertension; F17.210 Nicotine dependence, cigarettes, uncomplicated; Z79.899 Other long term (current) drug therapy; Z79.4 Long term (current) use of insulin; Z79.82 Long term (current) use of aspirin; Z86.73 Personal history of transient ischemic attack (TIA), and cerebral infarction without residual deficits